=== PATIENT | female | born 1995 | race Caucasian/White ===

== ENCOUNTER 2017-10-26 04:48 | Emergency (ER) | payer MEDICAID ==
[~2017-10-26] VITALS: Ht 167.6 cm; Wt 61.2 kg
--- NOTE | 2017-10-26 04:50 | NUR ---
PT BIBA#860 FROM HOME, PT STATES SHE TOOK METH, ALCOHOL, WEED, AND XANAX TODAY AND THOUGHT SHE OVERDOSED. PT PLACED ON VS MONITOR. VSS/RESP EVEN UNLABORED/NAD NOTED/SKIN WARM AND DRY/DENIES N-V-D/PT AOX4. PT DENIES SI/HI. AWAITNG MD MORRELL.
--- NOTE | 2017-10-26 05:07 | NUR ---
AT BEDSIDE FOR EVAL.
--- NOTE | 2017-10-26 06:18 | NUR ---
PT RESTING COMFORTABLY, CONTINUING TO PROVIDE COMFORT AND SAFETY MEASURES.
--- NOTE | 2017-10-26 07:28 | NUR ---
REPORT GIVEN TO KAE WILSON FOR [facility]. VSS.
[2017-10-26 10:02] VITALS: BP 101/51
== END 2017-10-26 10:02 | disposition home or self-care (01) ==
LOC: ER 04:51
DX: F19.10 Other psychoactive substance abuse, uncomplicated (principal); F41.9 Anxiety disorder, unspecified; F32.9 Major depressive disorder, single episode, unspecified
CPT/HCPCS: 82962; 99283; A4606; Z7610